=== PATIENT | female | born 1980 | race Caucasian/White ===

== ENCOUNTER → 2016-06-07 | Outpatient (CLI) | payer BC ==
[2016-06-07 16:39] LABS: Basophils % (A) 0 %; CH 28.3; CHCM 32.4; Eosinophils # (A) 0.2 k/uL (0-0.7); Eosinophils % (A) 2 %; HCT 40.8 % (34.0-46.0); HDW 2.45; HGB 13.4 gm/dL (11.4-16.0); Luc % (Auto) 3; Lymphocytes # (A) 2.1 k/uL (1.0-4.8); Lymphocytes % (A) 27 %; MCH 28.9 pg (25.0-35.0); MCHC 32.9 g/dL (31.0-37.0); MCV 87.8 fL (80.0-100.0); Mean Platelet Volume 8.2; Monocytes # (A) 0.2 k/uL (0-1.0); Monocytes % (A) 3 %; Neutrophils # (A) 5.1 k/uL (1.3-7.7); Neutrophils % (A) 65 %; RBC 4.65 m/uL (3.80-5.40); RDW 13.1 % (11.5-15.5); WBC 7.8 k/uL (3.8-10.6); WBC (Perox) 8.16
[2016-06-07 16:45] LABS: ALT 23 U/L (9-52); AST 19 U/L (14-36); Alkaline Phosphatase 70 U/L (38-126); Anion Gap 13 mmol/L; Blood Urea Nitrogen 10 mg/dL (7-17); Calcium 9.1 mg/dL (8.4-10.2); Carbon Dioxide 23 mmol/L (22-30); Chloride 108 mmol/L (98-107); Cholesterol 119 mg/dL (<200); Glucose 81 mg/dL (74-99); HDL Cholesterol 48 mg/dL (40-60); Non-African American GFR(MDRD) >60 (>60 ml/min/1.73 sqM); Potassium 4.2 mmol/L (3.5-5.1); Sodium 144 mmol/L (137-145); Total Bilirubin 0.7 mg/dL (0.2-1.3); Total Protein 6.7 g/dL (6.3-8.2); Triglycerides 95 mg/dL (<150)
== END ==
LOC: MMGSC 11:44
PROVIDERS: ATTEND Family Medicine
DX: Z00.00 Encounter for general adult medical examination without abnormal findings (principal)
CPT/HCPCS: 36415; 80053; 80061; 84439; 84443; 85025

== ENCOUNTER 2019-01-30 14:21 | Emergency (ER) | payer BC ==
[2019-01-30] MEDS ORDERED: SODIUM CHLORIDE 0.9% 1,000 ML IV STA (14:42)
--- NOTE | 2019-01-30 14:53 | ED ---
General Adult HPI - General Chief complaint: Abdominal Pain Stated complaint: Diarrhea/abd.pain/fever/headache Time Seen by Provider: 01/30/19 14:33 Source: patient, RN notes reviewed Mode of arrival: ambulatory Limitations: no limitations - History of Present Illness Initial comments: 38-year-old female presents to the emergency department for chief complaint of back pain, diarrhea, abdominal pain. Patient states she has had these symptoms for the past 3 days. She has had diarrhea several times a day. States she has also had nausea, denies vomiting. Denies urinary symptoms. Patient states there is a pain that is constant across her lower back as well as her abdomen. Patient states she has had fevers up to 101 at home. Patient had surgery on her foot for a bunionectomy several weeks ago and finished a course of antibiotics about a week ago. Denies any complications with this. Denies any foot pain or swelling. Patient has no other complaints at this time including shortness of breath, chest pain, abdominal pain, nausea or vomiting, headache, or visual changes. - Related Data Allergies Allergy/AdvReac Type Severity Reaction Status Date / Time No Known Allergies Allergy Verified 01/30/19 14:24 Review of Systems ROS Statement: Those systems with pertinent positive or pertinent negative responses have been documented in the HPI. ROS Other: All systems not noted in ROS Statement are negative. Past Medical History Past Medical History: No Reported History History of Any Multi-Drug Resistant Organisms: None Reported Past Surgical History: No Surgical Hx Reported, Section, Orthopedic Surgery Additional Past Surgical History / Comment(s): R foot, c section x2 Past Psychological History: Anxiety Smoking Status: Never smoker Past Alcohol Use History: Occasional Past Drug Use History: None Reported General Exam Limitations: no limitations General appearance: alert, in no apparent distress Head exam: Present: atraumatic, normocephalic, normal inspection Eye exam: Present: normal appearance, PERRL, EOMI. Absent: scleral icterus, conjunctival injection, periorbital swelling ENT exam: Present: normal exam, mucous membranes moist Neck exam: Present: normal inspection, full ROM. Absent: tenderness, meningismus, lymphadenopathy Respiratory exam: Present: normal lung sounds bilaterally. Absent: respiratory distress, wheezes, rales, rhonchi, stridor Cardiovascular Exam: Present: regular rate, normal rhythm, normal heart sounds. Absent: systolic murmur, diastolic murmur, rubs, gallop, clicks Back exam: Present: full ROM. Absent: CVA tenderness (R), CVA tenderness (L), vertebral tenderness Course Vital Signs 01/30/19 01/30/19 14:25 14:54 Temperature 99.3 F Pulse Rate 105 H 93 Respiratory 18 18 Rate Blood Pressure 128/78 120/75 O2 Sat by Pulse 96 97 Oximetry Medical Decision Making - Medical Decision Making 38-year-old female presents for abdominal pain, back pain and diarrhea for the past 2-3 days. She has mild left lower quadrant abdominal tenderness. No CVA tenderness. Patient does have some back pain as well but is able to get up and out of bed without any difficulty and walk without any difficulty. Denies any lower extremity symptoms. No numbness or tingling of the groin or buttock. No weakness of the lower extremities. No change in urinatoin. CBC and CMP is unremarkable. Urinalysis shows some evidence of dehydration.. C. diff is negative. Abdomen and pelvis CT is negative. She was feeling much better. She has remained afebrile here in the emergency department. Patient feeling well enough to go home. Patient was rehydrated and given starter pack of Tylenol 3 and Lomotil. She has any worsening symptoms such as worsening back pain or any other concerns she is to return to the emergency department. - Lab Data Result diagrams: 01/30/19 15:00 01/30/19 15:00 Lab Results 01/30/19 01/30/19 01/30/19 Range/Units 15:00 15:00 15:00 WBC 9.2 (3.8-10.6) k/uL RBC 4.92 (3.80-5.40) m/uL Hgb 14.0 (11.4-16.0) gm/dL Hct 41.7 (34.0-46.0) % MCV 84.8 (80.0-100.0) fL MCH 28.4 (25.0-35.0) pg MCHC 33.5 (31.0-37.0) g/dL RDW 12.5 (11.5-15.5) % Plt Count 257 (150-450) k/uL Neutrophils % 74 % Lymphocytes % 19 % Monocytes % 4 % Eosinophils % 1 % Basophils % 1 % Neutrophils # 6.8 (1.3-7.7) k/uL Lymphocytes # 1.7 (1.0-4.8) k/uL Monocytes # 0.4 (0-1.0) k/uL Eosinophils # 0.1 (0-0.7) k/uL Basophils # 0.1 (0-0.2) k/uL Sodium 140 (137-145) mmol/L Potassium 3.9 (3.5-5.1) mmol/L Chloride 107 (98-107) mmol/L Carbon Dioxide 22 (22-30) mmol/L Anion Gap 11 mmol/L BUN 7 (7-17) mg/dL Creatinine 0.70 (0.52-1.04) mg/dL Est GFR (CKD-EPI)AfAm >90 (>60 ml/min/1.73 sqM) Est GFR (CKD-EPI)NonAf >90 (>60 ml/min/1.73 sqM) Glucose 90 (74-99) mg/dL Plasma Lactic Acid Jamie 0.7 (0.7-2.0) mmol/L Calcium 9.1 (8.4-10.2) mg/dL Total Bilirubin 0.4 (0.2-1.3) mg/dL AST 21 (14-36) U/L ALT 13 (9-52) U/L Alkaline Phosphatase 87 (38-126) U/L Total Protein 7.1 (6.3-8.2) g/dL Albumin 4.0 (3.5-5.0) g/dL Amylase 45 (30-110) U/L Lipase 89 (23-300) U/L Urine Color Urine Appearance (Clear) Urine pH (5.0-8.0) Ur Specific [place] (1.001-1.035) Urine Protein (Negative) Urine Glucose (UA) (Negative) Urine Ketones (Negative) Urine Blood (Negative) Urine Nitrite (Negative) Urine Bilirubin (Negative) Urine Urobilinogen (<2.0) mg/dL Ur Leukocyte Esterase (Negative) Urine RBC (0-5) /hpf Urine WBC (0-5) /hpf Ur Squamous Epith Cells (0-4) /hpf Urine Bacteria (None) /hpf Urine Mucus (None) /hpf Urine HCG, Qual (Not Detectd) C. difficile (EIA) Intrp (Negative) 01/30/19 01/30/1901/30/19 Range/Units 15:50 15:50 16:30 WBC (3.8-10.6) k/uL RBC (3.80-5.40) m/uL Hgb (11.4-16.0) gm/dL Hct (34.0-46.0) % MCV (80.0-100.0) fL MCH (25.0-35.0) pg MCHC (31.0-37.0) g/dL RDW (11.5-15.5) % Plt Count (150-450) k/uL Neutrophils % % Lymphocytes % % Monocytes % % Eosinophils % % Basophils % % Neutrophils # (1.3-7.7) k/uL Lymphocytes # (1.0-4.8) k/uL Monocytes # (0-1.0) k/uL Eosinophils # (0-0.7) k/uL Basophils # (0-0.2) k/uL Sodium (137-145) mmol/L Potassium (3.5-5.1) mmol/L Chloride (98-107) mmol/L Carbon Dioxide (22-30) mmol/L Anion Gap mmol/L BUN (7-17) mg/dL Creatinine (0.52-1.04) mg/dL Est GFR (CKD-EPI)AfAm (>60 ml/min/1.73 sqM) Est GFR (CKD-EPI)NonAf (>60 ml/min/1.73 sqM) Glucose (74-99) mg/dL Plasma Lactic Acid Jamie (0.7-2.0) mmol/L Calcium (8.4-10.2) mg/dL Total Bilirubin (0.2-1.3) mg/dL AST (14-36) U/L ALT (9-52) U/L Alkaline Phosphatase (38-126) U/L Total Protein (6.3-8.2) g/dL Albumin (3.5-5.0) g/dL Amylase (30-110) U/L Lipase (23-300) U/L Urine Color Yellow Urine Appearance Clear (Clear) Urine pH 6.0 (5.0-8.0) Ur Specific [place] 1.018 (1.001-1.035) Urine Protein Trace H (Negative) Urine Glucose (UA) Negative (Negative) Urine Ketones 2+ H (Negative) Urine Blood Moderate H (Negative) Urine Nitrite Negative (Negative) Urine Bilirubin Negative (Negative) Urine Urobilinogen <2.0 (<2.0) mg/dL Ur Leukocyte Esterase Negative (Negative) Urine RBC 7 H (0-5) /hpf Urine WBC 1 (0-5) /hpf Ur Squamous Epith Cells 2 (0-4) /hpf Urine Bacteria Rare H (None) /hpf Urine Mucus Moderate H (None) /hpf Urine HCG, Qual Not Detected (Not Detectd) C. difficile (EIA) Intrp Negative (Negative) Disposition Clinical Impression: Diarrhea Disposition: HOME SELF-CARE Condition: Good Instructions (If sedation given, give patient instructions): Acute Diarrhea (ED) Additional Instructions: Please take motrin for pain. If pain is severe take Tylenol 3. Do not [address] or operate machinery while taking this. Please take Lomotil only as needed for diarrhea. Drink plenty of fluids. if you are having worsening symptoms return to the emergency department. Otherwise follow-up with culture results next week as well as primary care in 1-2 days. Is patient prescribed a controlled substance at d/c from ED?: No Referrals: Mojgan Gifford MD [Primary Care Provider] - 1-2 days Time of Disposition: 17:53
[2019-01-30 15:08] LABS: Basophils # (A) 0.1 k/uL (0-0.2); Basophils % (A) 1 %; Eosinophils # (A) 0.1 k/uL (0-0.7); Eosinophils % (A) 1 %; HCT 41.7 % (34.0-46.0); Lymphocytes # (A) 1.7 k/uL (1.0-4.8); Lymphocytes % (A) 19 %; MCH 28.4 pg (25.0-35.0); MCHC 33.5 g/dL (31.0-37.0); MCV 84.8 fL (80.0-100.0); Monocytes # (A) 0.4 k/uL (0-1.0); Monocytes % (A) 4 %; Neutrophils # (A) 6.8 k/uL (1.3-7.7); Neutrophils % (A) 74 %; Platelet Count 257 k/uL (150-450); RBC 4.92 m/uL (3.80-5.40); RDW 12.5 % (11.5-15.5); WBC 9.2 k/uL (3.8-10.6)
[2019-01-30 15:17] LABS: ALT 13 U/L (9-52); AST 21 U/L (14-36); African American GFR (CKD) >90 (>60 ml/min/1.73 sqM); Alkaline Phosphatase 87 U/L (38-126); Amylase 45 U/L (30-110); Anion Gap 11 mmol/L; Blood Urea Nitrogen 7 mg/dL (7-17); Calcium 9.1 mg/dL (8.4-10.2); Carbon Dioxide 22 mmol/L (22-30); Chloride 107 mmol/L (98-107); Glucose 90 mg/dL (74-99); Potassium 3.9 mmol/L (3.5-5.1); Sodium 140 mmol/L (137-145); Total Bilirubin 0.4 mg/dL (0.2-1.3); Total Protein 7.1 g/dL (6.3-8.2)
[2019-01-30 16:02] LABS: Appearance,Urine Clear (Clear); Bacteria,Urine Rare /hpf; Bilirubin,Urine Negative (Negative); Blood,Urine Moderate (Negative); Color,Urine Yellow; Glucose,Urine (UA) Negative (Negative); Ketones,Urine 2+ (Negative); Leukocyte Esterase,Urine Negative (Negative); Mucus,Urine Moderate /hpf; Nitrite,Urine Negative (Negative); Protein,Urine Trace (Negative); RBC,Urine 7 /hpf (0-5); Specific Gravity,Urine 1.018 (1.001-1.035); Squamous Epithelial Cell,Urine 2 /hpf (0-4); Urobilinogen,Urine <2.0 mg/dL (<2.0)
[2019-01-30] MEDS ORDERED: KETOROLAC 30 MG/ML 1 ML VIAL IM STA (16:21)
--- NOTE | 2019-01-30 17:05 | CT ---
EXAMINATION TYPE: CT abdomen pelvis w con DATE OF EXAM: 01/30/2019 COMPARISON: None HISTORY: LLQ and back pain with diarrhea x [address] DLP: 1645.4 mGycm Automated exposure control for dose reduction was used. TECHNIQUE: Helical acquisition of images was performed from the lung bases through the pelvis. CONTRAST: Performed without Oral Contrast and with IV Contrast, patient injected with 100 mL of Isovue 300. FINDINGS: Lung bases are clear. There is no pleural effusion. Heart size is normal. Liver spleen stomach pancreas gallbladder appear normal. Bile ducts are not dilated. There is no adrenal mass. Kidneys show satisfactory contrast opacification. There is no hydronephrosi s. There is no retroperitoneal adenopathy. Ureters are not dilated. Bladder distends smoothly. There is no inguinal hernia. There is no free fluid in the pelvis. Appendix appears normal. There is no mesenteric edema. There is no ascites or free air. There is no sign of a bowel obstructio n. Lumbar vertebra have fairly normal spacing and alignment. Lumbar posterior elements appear intact. Tom ny pelvis is intact. IMPRESSION: NEGATIVE CT SCAN OF THE ABDOMEN PELVIS. I DO NOT SEE A CAUSE FOR LEFT LOWER QUADRANT PAIN.
[2019-01-30] MEDS ORDERED: DIPHENOX-ATROP STARTER PACK 8 TAB BTL PO STA (17:50)
[2019-01-30] MEDS ORDERED: ACET/COD 300 MG/30 MG STARTER PACK 6 TAB BTL PO STA (17:50)
[2019-01-30 18:00] VITALS: BP 119/79; PULSE 90; RESP 14; TEMP 99.8
[2019-02-01 14:24] LABS: C. trachomatis,PCR Negative (Neg,Equiv); Chlamydia trachomatis Source Urine
[2019-02-01 14:39] LABS: N. gonorrhoeae,PCR Negative (Neg,Equiv); Neisseria Source Urine
== END 2019-01-30 18:12 | disposition home or self-care (01) ==
LOC: EC 14:21
DX: R19.7 Diarrhea, unspecified (principal); M54.5 Low back pain; R10.814 Left lower quadrant abdominal tenderness; E86.0 Dehydration
CPT/HCPCS: 36415; 80053; 82150; 83605; 83690; 85025; 81001; 81025; 87324; 87491; 87591; 87045; 87046; 74177; 99284; 96372; 96360; 96361; J1885; Q9967

== ENCOUNTER 2019-11-07 13:07 | Emergency (ER) | payer BC ==
[2019-11-07] MEDS ORDERED: HYDROmorphone 1 MG/ML 1 ML SYRINGE IVP STA ×2 (13:27→14:56)
--- NOTE | 2019-11-07 13:29 | ED ---
General Adult HPI <YueZach carlisle - Last Filed: 11/07/19 15:49> - General Source: patient, family, RN notes reviewed Mode of arrival: ambulatory Limitations: no limitations <Esteban Calvillo - Last Filed: 11/07/19 16:46> - General Chief complaint: Extremity Injury, Upper Stated complaint: L Wrist Injury Time Seen by Provider: 11/07/19 13:21 - History of Present Illness Initial comments: Patient is a pleasant 39-year-old female presenting to the emergency Department with left wrist injury. Incident occurred just 20 minutes prior to arrival. Patient was walking down wet steps when she slipped. Patient was holding self his left arm so she is unclear how she struck her injured the left wrist. Disco mfort is severe, increases with movement. No history of similar symptoms previously. No other area of injury. No head injury or loss of consciousness. No neck or back pain. No chest pain or dyspnea. No abdominal pain. (Esteban Calvillo) - Related Data Home Medications Medication Instructions Recorded Confirmed Escitalopram [Lexapro] 10 mg PO HS 11/07/19 11/07/19 Norethindrone-E.estradiol-Iron 1 tab PO HS 11/07/19 11/07/19 [Junel Fe 1 mg-20 Mcg Tablet] Allergies Allergy/AdvReac Type Severity Reaction Status Date / Time No Known Allergies Allergy Verified 11/07/19 14:35 Review of Systems ROS Other: All systems not noted in ROS Statement are negative. <Zach Mcpherson - Last Filed: 11/07/19 15:49> ROS Other: All systems not noted in ROS Statement are negative. Constitutional: Denies: fever Eyes: Denies: eye pain ENT: Denies: ear pain Respiratory: Denies: cough Cardiovascular: Denies: chest pain Endocrine: Denies: fatigue Gastrointestinal: Denies: abdominal pain Genitourinary: Denies: urgency Musculoskeletal: Reports: as per HPI, arthralgia Skin: Denies: rash Neurological: Denies: weakness <Esteban Calvillo - Last Filed: 11/07/19 16:46> ROS Statement: Those systems with pertinent positive or pertinent negative responses have been documented in the HPI. Past Medical History Past Medical History: No Reported History History of Any Multi-Drug Resistant Organisms: None Reported Past Surgical History: No Surgical Hx Reported, Section, Orthopedic Surgery Additional Past Surgical History / Comment(s): R foot, c section x2 Past Psychological History: Anxiety Past Alcohol Use History: Occasional Past Drug Use History: None Reported <Esteban Calvillo - Last Filed: 11/07/19 16:46> General Exam Limitations: no limitations General appearance: alert, in no apparent distress Head exam: Present: normocephalic Eye exam: Present: normal appearance Neck exam: Present: normal inspection. Absent: tenderness Respiratory exam: Present: normal lung sounds bilaterally Cardiovascular Exam: Present: regular rate, normal rhythm Expanded Peripheral pulses: 2+: Radial (L) GI/Abdominal exam: Present: soft. Absent: tenderness Extremities exam: Present: tenderness (Tenderness swelling and deformity left wrist. Distally the extremity is neurovascular intact.) Back exam: Present: normal inspection. Absent: vertebral tenderness Neurological exam: Present: alert. Absent: motor sensory deficit Psychiatric exam: Present: normal affect, normal mood Skin exam: Present: normal color. Absent: rash <Esteban Calvillo - Last Filed: 11/07/19 16:46> Course <Esteban Calvillo - Last Filed: 11/07/19 16:46> Vital Signs 11/07/19 11/07/19 11/07/19 13:16 13:45 14:58 Temperature 98.1 F Pulse Rate 95 88 71 Respiratory 18 20 18 Rate Blood Pressure 125/78 121/74 O2 Sat by Pulse 99 98 99 Oximetry 11/07/19 11/07/19 11/07/19 15:35 15:40 15:45 Temperature Pulse Rate 74 82 84 Respiratory 16 15 18 Rate Blood Pressure 129/81 130/86 121/73 O2 Sat by Pulse 99 100 97 Oximetry 11/07/19 11/07/19 11/07/19 15:50 15:55 16:00 Temperature Pulse Rate 82 86 82 Respiratory 14 13 14 Rate Blood Pressure 125/72 121/72 116/72 O2 Sat by Pulse 98 95 95 Oximetry 11/07/19 11/07/19 11/07/19 16:05 16:20 16:35 Temperature Pulse Rate 82 82 89 Respiratory 14 18 15 Rate Blood Pressure 115/72 122/67 102/89 O2 Sat by Pulse 95 96 98 Oximetry - Reevaluation(s) Reevaluation #1: 11/07/19 16:18 Patient reevaluated. updated. 11/07/19 16:44 Patient reevaluated. Patient alert and appropriate. Patient updated. (Esteban Calvillo) Procedures - Procedural Sedation Procedural Sedation Start Time: 15:35 Procedural Sedation Stop Time: 15:57 Indications: fracture/dislocation reduction ASA Class: I Mallampati Airway Score: 2 Preparation: residential monitor applied, pulse oximeter, capnometry used, supplemental O2 applied, reversal agents at bedside, suction/airway equipment at bedside, IV secured Midazolam: IV Midazolam Dose: 7 Complications: none Patient Tolerated Procedure: well, no complications <Zach Mcpherson - Last Filed: 11/07/19 15:49> - Orthopedic Fracture Reduction Fracture #1 Consent Obtained: written consent Side: left Fracture Reduction Location: radius, ulna Analgesia: procedural sedation Technique: direct manipulation Post Reduction X-rays Demonstrate: acceptable reduction Post-Reduction Neuro Exam: intact Post-Reduction Vascular Exam: intact Patient Tolerated Procedure: well, no complications - Orthopedic Splinting/Casting Injury #1 Side: left Upper Extremity Injury Location: short arm, wrist Upper Extremity Immobilizer: volar splint, thumb spica <Esteban Calvillo - Last Filed: 11/07/19 16:46> - Procedural Sedation Additional Comments: Dr. Calvillo (ED physician) performed closed fracture reduction. (Zach Mcpherson) Disposition <Zach Mcpherson - Last Filed: 11/07/19 15:49> Is patient prescribed a controlled substance at d/c from ED?: No Time of Disposition: 16:45 <Esteban Calvillo - Last Filed: 11/07/19 16:46> Clinical Impression: Fracture of distal radius and ulna Disposition: HOME SELF-CARE Condition: Stable Instructions (If sedation given, give patient instructions): Moderate Sedation (ED), Arm Fracture in Adults (ED) Additional Instructions: Please follow-up with Dr. Blanco the beginning of the week, number provided. Ice to affected area. Return for increased pain, finger problems, worsening symptoms or other concerns Referrals: Mojgan Gifford MD [Primary Care Provider] - 1-2 days Zia Hunt DO [Medical Doctor] - 1-2 days
--- NOTE | 2019-11-07 13:51 | XR ---
EXAMINATION TYPE: XR wrist complete LT DATE OF EXAM: 11/07/2019 CLINICAL HISTORY: pain TECHNIQUE: Frontal, lateral and oblique images of the left wrist are obtained. COMPARISON: None. FINDINGS: Impacted distal radial fracture with comminution noted and is articular extension. Ulnar st yloid fracture component is seen. Soft tissue deformity and swelling seen. IMPRESSION: Fracture as noted ICD 10 FRACTURE, INITIAL EVALUATION
[2019-11-07] MEDS ORDERED: MIDAZOLAM 1 MG/ML 5 ML VIAL IV STA ×2 (15:17→15:49)
--- NOTE | 2019-11-07 16:06 | XR ---
EXAMINATION TYPE: XR wrist limited LT DATE OF EXAM: 11/07/2019 COMPARISON: 11/07/2019 HISTORY: Wrist pain TECHNIQUE: 2 views FINDINGS: 2 views were obtained through the cast that show impacted comminuted fracture distal radius and also ulnar styloid process fractures. Fragments are in reasonable position. There is improvement in the position compared to initial exam. Carpal bones are intact. IMPRESSION: There is satisfactory reduction of the radius and ulna fractures.
[2019-11-07] MEDS ORDERED: ACET/COD 300 MG/30 MG STARTER PACK 6 TAB BTL PO STA (16:45)
[2019-11-07] MEDS ORDERED: HYDROcodone/APAP 10-325MG 1 EACH TAB PO ONE (16:45)
[2019-11-07 17:10] VITALS: BP 113/56; PULSE 79; RESP 16; TEMP 98
== END 2019-11-07 17:00 | disposition home or self-care (01) ==
LOC: EC 13:07
DX: S52.502A Unspecified fracture of the lower end of left radius, initial encounter for closed fracture (principal); S52.612A Displaced fracture of left ulna styloid process, initial encounter for closed fracture; F41.9 Anxiety disorder, unspecified; Z79.3 Long term (current) use of hormonal contraceptives; Z79.899 Other long term (current) drug therapy; Z98.890 Other specified postprocedural states; W10.8XXA Fall (on) (from) other stairs and steps, initial encounter; Y93.01 Activity, walking, marching and hiking
CPT/HCPCS: 73100; 73110; 99283; 25605; 99152; 96374; 96376 ×2; 96375; J2250; J1170

== ENCOUNTER → 2019-11-09 | Outpatient (CLI) | payer BC | END | disposition home or self-care (01) | LOC: LABWHC1 16:13 | PROVIDERS: ATTEND Orthopaedic Surgery | DX: M25.532 Pain in left wrist (principal) | CPT/HCPCS: 36415; 82306 ==

== ENCOUNTER 2019-11-13 11:57 | Day surgery (SDC) | payer BC ==
[2019-11-11 12:47] VITALS: BMI 35.7
[~2019-11-13 11:57] MED LIST: DEXAMETHASONE SOD PHOSPHATE 10 MG/ML 1 ML VIAL IV ONE; LACTATED RINGERS 1,000 ML IV SCH; LIDOCAINE 1% (10MG/ML) FOR IV START INTRADERMA PRN; MIDAZOLAM 2 MG/2 ML VIAL IV PRN; ONDANSETRON 4 MG/2 ML VIAL IVP ONE
[2019-11-13] MEDS ORDERED: ONDANSETRON 4 MG/2 ML VIAL ONE (12:57)
[2019-11-13] MEDS ORDERED: MIDAZOLAM 2 MG/2 ML VIAL IV ONE ×2 (13:16→13:23)
[2019-11-13] MEDS ORDERED: fentaNYL (PF) 50 MCG/ML 2 ML AMP IV ONE (13:16)
[2019-11-13] MEDS ORDERED: ROPIVACAINE 5 MG/ML 30 ML VIAL ONE (14:21)
[2019-11-13] MEDS ORDERED: LIDOCAINE 1% INJ 10MG/ML (20 ML MDV) ONE (14:21)
[2019-11-13] MEDS ORDERED: MIDAZOLAM 2 MG/2 ML VIAL ONE (14:21)
[2019-11-13] MEDS ORDERED: fentaNYL (PF) 50 MCG/ML 2 ML AMP ONE (14:21)
[2019-11-13] MEDS ORDERED: ALBUTEROL INHALER 60 PUFF/8 GM INHALER (MHU) INHALATION ONE (14:21)
[2019-11-13] MEDS ORDERED: DEXAMETHASONE SOD PHOSPHATE 4 MG/ML 1 ML VIAL ONE (14:21)
[2019-11-13] MEDS ORDERED: PROPOFOL 10 MG/ML 20 ML VIAL IV ONE (14:21)
[2019-11-13] MEDS ORDERED: LACTATED RINGERS 1,000 ML IV ONE (15:07)
[2019-11-13] MEDS ORDERED: LIDOCAINE 1%-EPI 1:100,000 20 ML VIAL SQ ONE ×2 (15:58)
[2019-11-13] MEDS: HYDROmorphone 0.5 MG/0.5 ML SYRINGE IVP PRN ×2 (16:29→16:36)
[2019-11-13] MEDS ORDERED: HYDROcodone/APAP 5-325MG 1 EACH TAB ONE (17:21)
[2019-11-13] MEDS ORDERED: HYDROcodone/APAP 5-325MG 1 EACH TAB PO ONE (17:30)
[2019-11-13 18:03] VITALS: PULSE 100
[2019-11-13 18:33] VITALS: BP 141/72; RESP 20; TEMP 98.3
--- NOTE | 2019-11-13 19:19 | P.ANPRN ---
Procedure Note - Anesthesia - Nerve Block Performed Left Supraclavicular Time Out Performed: Yes (13:15) Date of Procedure: 11/13/19 Procedure Start Time: :29 Location of Patient: PreOp Indication: Acute Post-Operative Pain, Requested by Surgeon (Dr Hunt) Sedation Type: Sedate with meaningful contact maintained Preparation: Sterile Prep Position: Supine Catheter: None Needle Types: Pajunk (22g) Ultrasound used to visualize needle placement: Yes Ultrasound used to observe medication spread: Yes Injectate: 0.5% Ropivacaine (see comment for volume) (20cc + [id number]) Blood Aspirated: No Pain Paresthesia on Injection Noted: No Resistance on Injection: Normal Image Stored and Saved: Yes Events: Uneventful and Well Tolerated
--- NOTE | 2019-11-14 08:21 | XR ---
EXAMINATION TYPE: XR wrist limited LT, FL guidance operating room DATE OF EXAM: 11/13/2019 COMPARISON: 11/07/2019 HISTORY: 39-year-old female ORIF left wrist FINDINGS: Multiple intraoperative fluoroscopic images demonstrating multiple percutaneous pinning across the co mminuted distal radial fracture. Known ulnar styloid process fracture not well seen on these fluorosc opic images. FLUOROSCOPY Fluoroscopy time of 1 minute 43 seconds was used during left wrist ORIF. Findings image/s document/s the procedure. IMPRESSION: Intraoperative fluoroscopy as above.
--- NOTE | 2019-11-23 16:39 | P.OP ---
Date of Procedure: 11/13/19 Preoperative Diagnosis: Displaced intra-articular left distal radius fracture with associated ulnar styloid base fracture. Postoperative Diagnosis: Displaced intra-articular left distal radius fracture with associated ulnar styloid base fracture. Procedure(s) Performed: Closed reduction and percutaneous pinning of displaced intra-articular left distal radius fracture (>3 fragments). Implants: 0.062 K wires (3); 0.054 K wires (2) Anesthesia: GETA, regional Surgeon: Zia Hunt Estimated Blood Loss (ml): 3 Condition: stable Disposition: PACU Indications for Procedure: The patient is 39-year-old female who injured her left wrist in a mechanical fall, resulting in a displaced distal radius fracture. Treatment options (and their associated risks and benefits) were discussed in the office. Based on the fracture pattern and intra-articular extension into both joints, surgical stabilization was recommended. The pros and cons of percutaneous versus open fixation were reviewed in detail. The patient expressed understanding and agreed with operative intervention. In preop, additional questions were addressed and the patient wished to proceed with surgery. Consent forms were signed. The surgical site was confirmed and marked preoperatively. Description of Procedure: The patient was positioned supine with the left arm on a hand table. A tourniquet was applied. Anesthesia and prophylactic IV antibiotics were administered uneventfully. The left upper extremity was then prepped and draped in standard, sterile fashion. A time-out was performed, confirming patient identifiers, the operative side, site and the procedure to be performed: all team members expressed agreement. The fracture was evaluated on multiple views using intraoperative fluoroscopy. There was a large displaced radial styloid fragment with an intra-articular split between the scaphoid and lunate fossae. Some loss of radial column length was noted. The fracture also had a transverse component, extending across the metaphysis and into the DRUJ at the center of the sigmoid notch. A manual closed reduction maneuver was performed, using a combination of axial traction and ulnar deviation. Repeat imaging demonstrated excellent alignment. The decision was made to proceed with percutaneous fracture stabilization. The limb was exsanguinated with an Esmarch and the tourniquet was inflated. The starting point for the K wire was identified by palpation and confirmed with fluoroscopy. A small longitudinal incision was made. The subcutaneous tissues were bluntly spread, taking care to protect the superficial sensory nerve branches. The first dorsal compartment tendons were identified and protected. With the fracture held reduced, a 0.062 K wire was inserted into the radial styloid and advanced across the fracture site into the metaphysis. Two additional K wires (one 0.062 and one 0.054) were inserted in a similar fashion (with slightly differing trajectories) for additional stability. To secure the articular fragments of the radiocarpal joint, a 0.054 K wire was selected and driven transversely through the styloid fragment and into the lunate fossa fragment, taking care to avoid penetrating into the DRUJ. A small incision was made dorsally between the 1st and 2nd dorsal compartments. The subcutaneous tissues were bluntly spread, taking care to protect adjacent sensory nerves. With the adjacent tendons retracted and protected, another 0.062 K wire was selected and positioned directly on the bone. This was advanced from dorsoradial to the volar/ulnar aspect of the metaphysis to provide additional sagittal plane stability and rotational control of the fracture. Final x-rays were obtained, confirming fracture reduction and implant position. The wrist was then ranged under live fluoroscopy: the fixation construct demonstrated excellent stability, with no motion of the fracture fragments or K wires. After reduction of the radius fracture, the ulnar styloid fracture was well-aligned and there was no laxity with wrist PROM or DRUJ shuck; no further fixation was deemed necessary. The pins were cut and covered with Jurgan balls. The wounds were thoroughly irrigated with normal saline. The tourniquet was released after 47 minutes at 175 mmHg: good hemostasis was obtained with manual pressure. The incisions were closed around the pins with interrupted 4-0 Nylon sutures. Local anesthetic with epinephrine was injected for adjunct postoperative pain control and hemostasis. A sterile dressing was applied followed by a plaster sugartong splint. All sponge, needle and instrument counts were correct at the end of the case. The patient tolerated the procedure well and was taken to the recovery room in stable condition.
== END 2019-11-13 18:44 | disposition home or self-care (01) ==
LOC: OR 11:57
PROVIDERS: ATTEND Orthopaedic Surgery
DX: S52.572A Other intraarticular fracture of lower end of left radius, initial encounter for closed fracture (principal); S52.612A Displaced fracture of left ulna styloid process, initial encounter for closed fracture; W10.8XXA Fall (on) (from) other stairs and steps, initial encounter; Z79.3 Long term (current) use of hormonal contraceptives; Z79.891 Long term (current) use of opiate analgesic; Z79.899 Other long term (current) drug therapy; Z98.890 Other specified postprocedural states; F41.9 Anxiety disorder, unspecified
CPT/HCPCS: 25606; 64415; 76942; 73100; J2250; J1100 ×2; J0690; J2405; J2001; J3010; J2795; J2704; J1170

== ENCOUNTER → 2020-09-13 | Outpatient (CLI) | payer BC ==
--- NOTE | 2020-09-14 14:48 | MM ---
Reason for exam: screening (asymptomatic). Last mammogram was performed 5 years and 3 months ago. History: Family history of breast cancer in mother at age 49 and breast cancer in maternal aunt at age 66. Taking hormonal contraceptives for 1 year. Physical Findings: A clinical breast exam by your physician is recommended on an annual basis and results should be correlated with mammographic findings. MG 3D Screening Mammo W/Cad Bilateral CC and MLO view(s) were taken. Prior study comparison: June 10, 2015, bilateral MG 3d work up w/cad JIMENEZ. June 07, 2015, bilateral MG screening mammo w CAD. Focal asymmetry right upper outer quadrant, posterior, 10cm from nipple. This finding is changed when compared with previous exams. ASSESSMENT: Incomplete: need additional imaging evaluation, BI-RAD 0 RECOMMENDATION: Special view mammogram of the right breast. If lesion persists on supplemental views, image directed ultrasound is recommended. [facility] will attempt to contact patient to return for supplemental views and ultrasound if indicated.
== END | disposition home or self-care (01) ==
LOC: RADMAMWWP 09:05
PROVIDERS: ATTEND Obstetrics & Gynecology
DX: Z12.31 Encounter for screening mammogram for malignant neoplasm of breast (principal); Z80.3 Family history of malignant neoplasm of breast
CPT/HCPCS: 77063; 77067

== ENCOUNTER → 2020-09-15 | Outpatient (CLI) | payer BC ==
--- NOTE | 2020-09-16 11:39 | MM ---
Reason for exam: additional evaluation requested from abnormal screening. Last mammogram was performed less than 1 month ago. History: Family history of breast cancer in mother at age 49 and breast cancer in maternal aunt at age 66. Taking hormonal contraceptives for 1 year. Physical Findings: Nurse did not find any significant physical abnormalities on exam. MG 3D Work Up W/Cad RT Spot compression CC, spot compression MLO, and LM view(s) were taken of the right breast. Prior study comparison: September 13, 2020, bilateral MG 3d screening mammo w/cad. June 10, 2015, bilateral MG 3d work up w/cad [facility]. The breast tissue is heterogeneously dense. This may lower the sensitivity of mammography. Questioned distortion posterior lateral becomes less defined on 3D spot. Some residual 8mm density remains. Ultrasound recommended. These results were verbally communicated with the patient and result sheet given to the patient on 09/15/20. ASSESSMENT: Incomplete: need additional imaging evaluation, BI-RAD 0 RECOMMENDATION: Ultrasound of the right breast. (8-12 o'clock)
--- NOTE | 2020-09-16 11:41 | USB ---
Reason for exam: additional evaluation requested from abnormal screening. History: Family history of breast cancer in mother at age 49 and breast cancer in maternal aunt at age 66. Taking hormonal contraceptives for 1 year. US Breast Workup Limited RT Right limited breast ultrasound including focal area of concern, retroareolar and axilla demonstrates a 0.7 x 0.3 x 0.5cm cystic lesion at 8 o'clock, benign appearing, no correlate for mammographic finding. Probably benign asymmetry/overlap. 6 month follow up right diagnostic mammogram. These results were verbally communicated with the patient and result sheet given to the patient on 09/15/20. ASSESSMENT: Probably benign, BI-RAD 3 RECOMMENDATION: Follow-up diagnostic mammogram of the right breast in 6 months.
== END | disposition home or self-care (01) ==
LOC: RADMAMWWP 07:41
PROVIDERS: ATTEND Obstetrics & Gynecology
DX: R92.2 Inconclusive mammogram (principal); N60.01 Solitary cyst of right breast; Z80.3 Family history of malignant neoplasm of breast; Z79.3 Long term (current) use of hormonal contraceptives
CPT/HCPCS: 77061; 77065

== ENCOUNTER → 2021-09-14 | Outpatient (CLI) | payer BC ==
--- NOTE | 2021-09-18 17:48 | MM ---
Reason for Exam: Screening (asymptomatic). Last screening mammogram was performed 12 month(s) ago. Patient History: Menarche at age 12. First Full-Term at age 29. Currently using Hormonal Contraceptives, for 1 year. Maternal aunt had breast cancer, age 66. Mother had breast cancer, age 49. Last menstrual period: 08/13/2021 Risk Values: Brionna 5 year model risk: 1.2%. NCI Lifetime model risk: 18.6%. Prior Study Comparison: 09/13/2020 Bilateral Screening Mammogram, [facility]. 09/15/2020 Right Diagnostic Mammogram, [facility]. 03/27/2021 Right Diagnostic Mammogram, [facility]. Tissue Density: The breast tissue is heterogeneously dense. This may lower the sensitivity of mammography. Findings: Analyzed By CAD. Possible distortion posterior outer left CC view incompletely disperses on 3 images. No clear correlate on the MLO view. Additional views recommended. Otherwise, no significant change. Overall Assessment: Incomplete: need additional imaging evaluation, BI-RAD 0 Management: Special View Mammogram of the left breast. 1. Additional views left breast to include spot 3-D CC, 3-D CC rolled medial, and 3-D ML views. 2. Targeted left breast ultrasound if any persisting abnormality. Electronically signed and approved by: Gloria Crowder M.D. Radiologist
== END | disposition home or self-care (01) ==
LOC: RADMAMWWP 11:17
PROVIDERS: ATTEND Obstetrics & Gynecology
DX: Z12.31 Encounter for screening mammogram for malignant neoplasm of breast (principal); Z80.3 Family history of malignant neoplasm of breast
CPT/HCPCS: 77063; 77067

== ENCOUNTER → 2021-09-21 | Outpatient (CLI) | payer BC ==
--- NOTE | 2021-09-22 12:02 | MM ---
Reason for Exam: Additional evaluation requested from abnormal screening. Last screening mammogram was performed less than 1 month ago. Patient History: Menarche at age 12. First Full-Term at age 29. Currently using Hormonal Contraceptives, for 1 year. Maternal aunt had breast cancer, age 66. Mother had breast cancer, age 49. Risk Values: Brionna 5 year model risk: 1.2%. NCI Lifetime model risk: 18.6%. Prior Study Comparison: 09/15/2020 Right Diagnostic Mammogram, [facility]. 03/27/2021 Right Diagnostic Mammogram, [facility]. 09/14/2021 Bilateral MG 3D screening mammo w/cad, [facility]. Tissue Density: Left: The breast tissue is heterogeneously dense. This may lower the sensitivity of mammography. Findings: Analyzed By CAD. Distortion upper outer left breast persists although is improving. Ultrasound is advised. Technique: Method: Targeted. Patient Position: Supine. Findings: No solid or cystic mass is identified. Overall Assessment: Probably benign, BI-RAD 3 Assessment: MG 3D work up w/cad LT - Left: Incomplete: need additional imaging evaluation, BI-RAD 0. US breast workup limited LT - Left: Probably benign, BI-RAD 3. Management: Diagnostic Mammogram of the left breast in 6 months. A clinical breast exam by your physician is recommended on an annual basis and results should be correlated with mammographic findings. Results were given to the patient verbally at the time of exam. Electronically signed and approved by: Wyatt Lovell M.D. Radiologis
== END | disposition home or self-care (01) ==
LOC: RADMAMWWP 10:20
PROVIDERS: ATTEND Obstetrics & Gynecology
DX: R92.8 Other abnormal and inconclusive findings on diagnostic imaging of breast (principal); Z80.3 Family history of malignant neoplasm of breast
CPT/HCPCS: 77061; 77065

== ENCOUNTER 2021-11-26 23:07 | Emergency (ER) | payer BC ==
[2021-11-26 23:57] VITALS: BP 122/68; PULSE 111; RESP 20; TEMP 98.8
[2021-11-27 00:39] LABS: Amphetamine Screen,Urine Not Detected (NotDetected); Barbiturate Screen,Urine Not Detected (NotDetected); Benzodiazepines Screen,Urine Not Detected (NotDetected); Cocaine Screen,Urine Not Detected (NotDetected); Methadone Screen, Urine Not Detected (NotDetected); Opiate Screen,Urine Not Detected (NotDetected); Oxycodone Screen, Urine Not Detected (NotDetected); Phencyclidine Screen,Urine Not Detected (NotDetected); Tricyclic Antidepressant,Urine Not Detected (NotDetected); Urn Cannabinoid Scrn Not Detected (NotDetected)
--- NOTE | 2021-11-27 00:47 | ED ---
Psych HPI - General Chief Complaint: Psychiatric Symptoms Stated Complaint: Mental Health Time Seen by Provider: 11/27/21 00:28 Source: patient, RN notes reviewed, old records reviewed Mode of arrival: ambulatory Limitations: no limitations - History of Present Illness Initial Comments: This is a 41-year-old female presenting with spouse. Patient presents today for evaluation of severe depression patient has significant and severe depression here in the emergency department. States that she is ready to not live anymore. Patient denies any recent drugs or alcohol abuse. States she's had these feelings for a while it is getting worse MD Complaint: suicidal ideation, feels depressed -: unknown Associated Psychiatric Symptoms: depression, suicidal ideation, racing thoughts History of same: Yes Quality: constant Improves With: none Worsens With: none Context: not taking psychiatric medications, significant life stressor Associated Symptoms: denies other symptoms Treatments Prior to Arrival: placed on mental health hold If Self Harm: admits thoughts of self harm - Related Data Home Medications Medication Instructions Recorded Confirmed Escitalopram [Lexapro] 10 mg PO HS 11/07/19 11/11/19 norethindrone-e.estradioL-iron 1 tab PO HS 11/07/19 11/11/19 [Junel Fe 1 mg-20 Mcg Tablet] HYDROcodone/APAP 5-325MG [Lilly 1 tab PO Q4HR PRN 11/11/19 11/11/19 5-325] Previous Rx's Medication Instructions Recorded Cephalexin [Keflex] 500 mg PO Q8HR #21 cap 11/13/19 Allergies Allergy/AdvReac Type Severity Reaction Status Date / Time No Known Allergies Allergy Verified 11/26/21 23:51 Review of Systems ROS Statement: Those systems with pertinent positive or pertinent negative responses have been documented in the HPI. ROS Other: All systems not noted in ROS Statement are negative. Past Medical History Past Medical History: No Reported History History of Any Multi-Drug Resistant Organisms: None Reported Past Surgical History: Section, Orthopedic Surgery Additional Past Surgical History / Comment(s): R foot, c section x2,left wrist Past Anesthesia/Blood Transfusion Reactions: No Reported Reaction Past Psychological History: Anxiety Smoking Status: Never smoker Past Alcohol Use History: Occasional Past Drug Use History: None Reported - Past Family History Mother Family Medical History: Cancer Additional Family Medical History / Comment(s): BREAST CANCER General Exam Limitations: no limitations General appearance: alert, in no apparent distress Head exam: Present: atraumatic, normocephalic, normal inspection Eye exam: Present: normal appearance, PERRL, EOMI. Absent: scleral icterus, conjunctival injection, periorbital swelling ENT exam: Present: normal exam, mucous membranes moist Neck exam: Present: normal inspection. Absent: tenderness, meningismus, lymphadenopathy Respiratory exam: Present: normal lung sounds bilaterally. Absent: respiratory distress, wheezes, rales, rhonchi, stridor Cardiovascular Exam: Present: normal rhythm, tachycardia, normal heart sounds. Absent: systolic murmur, diastolic murmur, rubs, gallop, clicks GI/Abdominal exam: Present: soft, normal bowel sounds. Absent: distended, tenderness, guarding, rebound, rigid Extremities exam: Present: normal inspection, full ROM, normal capillary refill. Absent: tenderness, pedal edema, joint swelling, calf tenderness Back exam: Present: normal inspection Neurological exam: Present: alert, oriented X3, CN II-XII intact Psychiatric exam: Present: normal affect, normal mood Skin exam: Present: warm, dry, intact, normal color. Absent: rash Course Vital Signs 11/26/21 23:51 Temperature 98.8 F Pulse Rate 111 H Respiratory 20 Rate Blood Pressure 122/68 O2 Sat by Pulse 97 Oximetry - Reevaluation(s) Reevaluation #1: 11/27/21 01:12 Medical record is reviewed Reevaluation #2: 11/27/21 01:12 Medical clear for psychiatric evaluation Medical Decision Making - Medical Decision Making 41 female at this point seen eval by psychiatry, patient is not petition, patient feels comfortable with discharge home and resources soda spouse - Lab Data Lab Results 11/26/21 Range/Units 23:57 Urine Opiates Screen Not Detected (NotDetected) Ur Oxycodone Screen Not Detected (NotDetected) Urine Methadone Screen Not Detected (NotDetected) Ur Propoxyphene Screen Not Detected (NotDetected) Ur Barbiturates Screen Not Detected (NotDetected) U Tricyclic Antidepress Not Detected (NotDetected) Ur Phencyclidine Scrn Not Detected (NotDetected) Ur Amphetamines Screen Not Detected (NotDetected) U Methamphetamines Scrn Not Detected (NotDetected) U Benzodiazepines Scrn Not Detected (NotDetected) Urine Cocaine Screen Not Detected (NotDetected) U Marijuana (THC) Screen Not Detected (NotDetected) Disposition Clinical Impression: Adjustment reaction of adult life Disposition: HOME SELF-CARE Condition: Good Instructions (If sedation given, give patient instructions): Stress (ED), Mood Disorders (ED) Is patient prescribed a controlled substance at d/c from ED?: No Referrals: Mojgan Gifford MD [Primary Care Provider] - 1-2 days
== END 2021-11-27 02:31 | disposition home or self-care (01) ==
LOC: EC 23:07
DX: F43.22 Adjustment disorder with anxiety (principal); F41.9 Anxiety disorder, unspecified; F32.A Depression, unspecified; Z79.899 Other long term (current) drug therapy
CPT/HCPCS: 80306; 82075; 99284

== ENCOUNTER → 2022-03-30 | Outpatient (CLI) | payer BC ==
--- NOTE | 2022-03-30 11:31 | MM ---
Reason for Exam: Follow-up at short interval from prior study. Last screening mammogram was performed 7 month(s) ago. Patient History: Menarche at age 12. First Full-Term at age 29. Currently using Hormonal Contraceptives, for 1 year. Maternal aunt had breast cancer, age 66. Mother had breast cancer, age 49. Last menstrual period: 02/27/2022 Risk Values: Brionna 5 year model risk: 1.2%. NCI Lifetime model risk: 18.6%. Prior Study Comparison: 03/27/2021 Right Diagnostic Mammogram, [facility]. 09/14/2021 Bilateral MG 3D screening mammo w/cad, [facility]. 09/21/2021 Left MG 3D work up w/cad , [facility]. Tissue Density: Left: The breast tissue is heterogeneously dense. This may lower the sensitivity of mammography. Findings: Analyzed By CAD. Distortion upper outer left breast persists and is unchanged. No new suspicious masses or worrisome calcifications. Overall Assessment: Benign, BI-RAD 2 Management: Screening Mammogram of both breasts in 6 months. A clinical breast exam by your physician is recommended on an annual basis and results should be correlated with mammographic findings. This exam should not preclude additional follow-up of suspicious palpable abnormalities. Results were given to the patient verbally at the time of exam. Electronically signed and approved by: Oni Francis D.O.
== END | disposition home or self-care (01) ==
LOC: RADMAMWWP 10:53
PROVIDERS: ATTEND Obstetrics & Gynecology
DX: R92.8 Other abnormal and inconclusive findings on diagnostic imaging of breast (principal); Z80.3 Family history of malignant neoplasm of breast
CPT/HCPCS: 77061; 77065

== ENCOUNTER → 2023-10-02 | Outpatient (CLI) | payer BC ==
--- NOTE | 2023-10-03 10:11 | MM ---
Reason for Exam: Screening (asymptomatic). Last mammogram was performed 2 year(s) and 1 month(s) ago. Patient History: Menarche at age 12. First Full-Term at age 29. Currently using Hormonal Contraceptives, for 1 year. Maternal aunt had breast cancer, age 66. Mother had breast cancer, age 49. Risk Values: Brionna 5 year model risk: 1.4%. NCI Lifetime model risk: 18.3%. Prior Study Comparison: 09/14/2021 Bilateral MG 3D screening mammo w/cad, [facility]. 09/21/2021 Left MG 3D work up w/cad LT, [facility]. 03/30/2022 Left MG 3D diag mammo w/cad LT, [facility]. Tissue Density: The breasts are heterogeneously dense, which may obscure small masses. Findings: Analyzed By CAD. The pattern is symmetrical. No significant interval change No suspicious groups of microcalcifications, spiculated or lobular masses, architectural distortion or other secondary signs of malignancy are mammographically apparent. Overall Assessment: Benign, BI-RAD 2 Management: Screening Mammogram of both breasts in 1 year. A negative mammogram report should not preclude additional follow up of suspicious palpable abnormalities. Patient should continue monthly self breast exam. A clinical breast exam by your physician is recommended on an annual basis and results should be correlated with mammographic findings. Note on Brionna scores and lifetime risk: 1. A Brionna score greater than 3% is considered moderate risk. If this is the case, consider specialist referral to assess eligibility for a risk reducing agent. 2. If overall lifetime risk for the development of breast cancer is 20% or higher, the patient may qualify for future screening with alternating mammogram and breast MRI. Electronically signed and approved by: Eduard Vanessa D.O. Radiologis
== END | disposition home or self-care (01) ==
LOC: RADMAMWWP 16:26
PROVIDERS: ATTEND Obstetrics & Gynecology
DX: Z12.31 Encounter for screening mammogram for malignant neoplasm of breast (principal); Z80.3 Family history of malignant neoplasm of breast
CPT/HCPCS: 77063; 77067